=== PATIENT | female | born 1990 | race Caucasian/White ===

== ENCOUNTER 2024-07-18 11:15 | Outpatient (REF) | payer MEDICAID, SELFPAY ==
[2024-07-18 13:54] LABS: Uric Acid 5.3 mg/dL (2.4-5.7)
[2024-07-18 14:57] LABS: Rheumatoid Factor < 13.0 IU/mL (<15.0)
[2024-07-19 19:37] LABS: Lyme Abs Screen <0.90 index
[2024-07-20 11:34] LABS: Anti Nuclear Antibody Screen NEGATIVE (NEGATIVE)
--- OUTSIDE RECORDS SUMMARY | 2024-07-24 18:01 | XMS_ITS | Data Portability ---
Author Organization [facility] leonardo [address] Address [address] [place] [address] Assessment No assessment recorded. Plan of Treatment Reminders Order Date Submit Date Provider Last Modified By Organization Details Last Modified Time Details Appointments None recorded. Lab None recorded. Referral None recorded. Procedures None recorded. Surgeries None recorded. Imaging None recorded. Medication Orders Aplisol 5 tub. unit/0.1 mL intradermal injection solution 2023 024 [email or web address] Not available 12:19:13 Patient TargetsNo targets recorded. Patient InstructionsNo instructions recorded. Reason for Referral None Reported. Medical Equipment None Reported. Allergies No known drug allergies Medications Name Sig Start Date Stop Date Status Note LastModified by Organization Details LastModified Time Aplisol 5 tub. unit/0.1 mL intraderma l injection solution Inject 0.1 mL by intraderm al route. 2023 active Billable units for PPD is one. Units are not the dose. Not Available Not Available Not Available Johanna 0.35 mg tablet TAKE 1 TABLET BY MOUTH EVERY DAY IN THE MORNING active Not Available Not Available No t Available Vitals None Recorded Social History None recorded. Functional Status None recorded. Mental Status None recorded. Family History Nothing Reported. Medical History No medical history recorded. Gynecological HistoryNo gynecological history recorded. Obstetrics History GPAL:G 0 P 0 0 0 0 Past Encounters Encounter ID Performer Location Encounter Start Date Encounter Closed Date Diagnosis/Indication Diagnosis SNOMED-CT Code Diagnosis ICD10 Code [id number] [address] [address] 03/28/2019 11:54:35 03/28/2019 12:08:46 [id number] [address] [facility] [address] [place] [address] 06/28/2018 15:35:24 06/28/2018 17:15:54 [id number] [address] [facility] TAMMIE Blum [address] 06/08/2022 11:27:35 06/08/2022 14:41:06 [id number] Wanda Butler MD [address] [facility] [address] [place] [address] 11/15/2023 11:13:43 11/15/2023 12:00:33 Tuberculosis screening 438242513 Z11.1 Health Concerns Section Related Observation LastModified by Organization Detai ls LastModified Time None Recorded Concern Status LastModified by Organization Details LastModified Time None Recorded Advance Directives Directive None Recorded Payers Encounter Date Sequence Insurance Name Policy Number Policy Peralta Covered Member ID Peralta Member ID Guarantor Name 11/15/2023 OC-PAY AT TIME OF SERVICE 2022 Claurelina Manjarrez SELF Claurelina Manjarrez OBGyn Episode No OBEpisode recorded.
== END 2024-07-18 11:16 | disposition home or self-care (01) ==
LOC: HO.HHCL 11:15
PROVIDERS: Visit Provider Emergency Medicine
DX: M25.531 Pain in right wrist (principal); M25.532 Pain in left wrist; M25.561 Pain in right knee; M25.562 Pain in left knee
CPT/HCPCS: 36415; 84550; 86038; 86431; 86617; 86618

== ENCOUNTER 2024-07-24 05:53 | Outpatient (REF) | payer MEDICAID, SELFPAY ==
--- NOTE | 2024-07-24 | EMG_ITS ---
FINDINGS: Bilateral median and ulnar motor and sensory studies were performed. Bilateral radial sensory studies were performed. Bilateral median and lateral antecubital brachial sensory studies were performed. Needle examination was performed. IMPRESSION: Mild right median neuropathy across carpal tunnel. Otherwise, no significant abnormality noted. MD JENNIFER Bear/TALYA / [id number]
--- OUTSIDE RECORDS SUMMARY | 2024-07-25 18:21 | XMS_ITS | Data Portability ---
Author Organization SAMMY leonardo [address] Address [address] [place] [address] Assessment No assessment recorded. Plan of Treatment [...] Diagnosis/Indication Diagnosis SNOMED-CT Code Diagnosis ICD10 Code [id number] [address] [address] 03/28/2019 11:54:35 03/28/2019 12:08:46 [id number] [address] [facility] [address] [facility] [address] 06/28/2018 15:35:24 06/28/2018 17:15:54 [id number] [address] [facility] TAMMIE Blum [address] 06/08/2022 11:27:35 06/08/2022 14:41:06 [id number] Wanda Butler MD [address] [facility] [address] [facility] [place] [address] 11/15/2023 11:13:43 11/15/2023 12:00:33 Tuberculosis screening [id number] Z11.1 Health Concerns Section Related Observation LastModified [...]
== END 2024-07-24 05:54 | disposition home or self-care (01) ==
LOC: HO.NEURO 05:53
PROVIDERS: Visit Provider Emergency Medicine
DX: M25.531 Pain in right wrist (principal); M25.532 Pain in left wrist
CPT/HCPCS: 95886; 95913

== ENCOUNTER 2024-09-17 09:54 | Outpatient (AMB) | payer MEDICAID, SELFPAY ==
--- NOTE | 2024-09-17 10:14 | MHC.OFFVIS ---
Vital Signs 09/17/24 10:33 Height 5 ft 3 in Intake Visit Reasons: New Pt - Bilateral CTS - EMG Done Intake Note: Tram 34 yr old female presents today for a new patient visit for bilateral hand CTS. States left is worse. States symptoms started about -3 months ago and has worsen since. Patient would like to discuss surgical intervention. EMG done. IMPRESSION: Mild right median neuropathy across carpal tunnel. Otherwise, no significant abnormality noted. Study Assistant Name: Jessica [id number] Allergies VITAMIN B COMPLEX Allergy (Unknown, Uncoded 09/17/24 10:32) hives Vitamin B Complex Allergy (Unknown, Uncoded 09/17/24 10:32) hives HPI HPI New Pt - Bilateral CTS - EMG Done: Details: Tram 34 yr old female presents today for a new patient visit for bilateral hand CTS. States left is worse. States symptoms started about -3 months ago and has worsen since. Patient would like to discuss surgical intervention. EMG done. IMPRESSION: Mild right median neuropathy across carpal tunnel. Otherwise, no significant abnormality noted. [facility] Social History (Updated 09/17/24 @ 10:33 by Shakira Cobian [facility]) Current occupation: rt hand / [employer] Physical Exam Extrem Other: Neuro: Normal sensation in both hands today No thenar or intrinsic wasting. Good APB muscle firing and good finger cross. Vascular: Capillary refill brisk. ROM: Patient can make a fist and extend all their digits. Skin: No lacerations or abrasions noted. General: No ecchymosis. No erythema or evidence of infection. Assessment & Plan Assessment & Plan (1) Right carpal tunnel syndrome: Code(s): G56.01 - Carpal tunnel syndrome, right upper limb Category: Medical Plan 1. Right carpal tunnel syndrome Intermittent, daily, worse at night Patient was educated about this condition Patient was educated about the treatment options available Patient states she would like to have some more time to think about any potential surgical intervention prior to getting signed up Patient was educated on the potential risks of prolonging treatment for carpal tunnel syndrome Patient states understanding of these risks Patient will follow-up in 4-6 weeks for discussion of carpal tunnel release, sooner with any acute concerns Coding Level of Care Code New Pt Level 4 (32533) Diagnoses Right carpal tunnel syndrome G56.01
--- OUTSIDE RECORDS SUMMARY | 2024-09-17 10:25 | XMS_ITS | Encounter Summary ---
Author Organization [facility] Address [address] [place] [address] 7 [place] [address] Care Team Providers Care Core Feeder Name Role Phone Rosanna Castellanos MD Primary Care Provider [phone] Marlys Man RN Unavailable [phone] Encounter Details Date Type Department Care Team (Latest Contact Info) Description 05/27/2021 Abstract [facility] CONVERSIONS Dental, Provider, DDS Social History Tobacco Use Types Packs/Day Years Used Date Smoking Tobacco: Never Assessed Comments Unknown Sex and Gender Information Value Date Recorded Sex Assigned at Female 06/14/2022 10:22 AM EDT Legal Sex Female 10:22 AM EDT Gender Identity Female 06/14/2022 10:22 AM EDT Sexual Orientation Straight 06/14/2022 10 :22 AM EDT documented as of this encounter Plan of Treatment Upcoming Encounters Date Type Department Care Team (Late st Contact Info) Description 10/17/2024 10:30 AM EST Office Visit [facility] OPTOMETRY [address] [place] [address] Madelin Alonso, OD [address] [place] [address] documented as of this encounter Visit Diagnoses Not on filedocumented in this encounter Care Teams Core Feeder Relationship Specialty Start Date End Date Rosanna Castellanos MD [address] [place] [address] PCP - General Family Medicine 04/07/21 Marlys Man, MALIHA [address] [place] [address] Program Director Substance AbuseRat Culturist 12/15/23 documented as of this encounter
--- OUTSIDE RECORDS SUMMARY | 2024-09-17 10:25 | XMS_ITS | Clinical Summary ---
Author Organization [employer] Address [address] [facility] [address]t [place] [address] Care Team Providers Care Brazing Machine Operator Helper Name Role Phone Rosanna Castellanos MD Primary Care Provider Marlys Man RN Unavailable [phone] Allergies Active Allergy Reactions Criticality Noted Date Comments Niacin Other High 09/27/2022 syncope Medications Pain Reliever Plus 250-250-65 MG tablet TAKE 1 OR 2 TABLETS BY MOUTH NEEDED AT ONSET OF HEADACHE. DO NOT EXCEED 4 TABLETS IN 4 HOURS OR 8 TABLETS PER DAY 2 Active ibuprofen 800 MG tablet TAKE 1 TAB EVERY 8 HOURS FOR PAIN 2 Active topiramate (Topamax) 25 MG tablet TAKE 1 TABLET BY MOUTH ONCE DAILY FOR 90 DAYS 2 Active sucralfate (Carafate) 1 g tablet Take 1 g by mouth. 8 Active simethicone (Mylicon) 80 MG chewable tablet Chew 80 mg. 8 Active polyvinyl alcohol (Liquifilm Tears) 1.4 % ophthalmic solution one drop in each eye as needed for burning/drynes s 9 Active polyethylene glycol, PEG, 3350 (Glycolax) 17 GM/SCOOP powder Take 17 g by mouth. 8 Active omeprazole OTC (PriLOSEC OTC) 20 MG EC tablet Take 1 tablet by mouth at bed time. 0 Active norethindrone (Micronor) 0.35 MG tabletIndicatio ns:Irregular menses TAKE 1 TABLET BY MOUTH EVERY MORNING 84 tablet 3 3 Active acetaminophen (Tylenol) 500 MG tablet Take 2 tablets (1,000 mg) by mouth every 6 (six) hours if needed for moderate pain or fever. 40 tablet 4 Active ibuprofen 400 MG tablet Take 1 tablet (400 mg) by mouth every 6 (six) hours if needed for moderate pain or fever for up to 30 doses. 30 tablet 4 Active lidocaine (Lidoderm) 5 % patch Apply 1 patch topically Once per day. Remove & discard patch within 12 hours or as directed by MD. 30 patch 2 4 07/18/20 25 Active Active Problems Problem Noted Date Diagnosed Date Encounter for pre-employment examination 024 Assessment & Plan (10/16/2023 9:43 AM EST): Pt is cleared for employment, as she has no evidence of communicable disease and is physically capable of the demands of her employment. Constipation 09/27/2022 Hemangioma of liver 09/27/2022 Kidney stone 09/27/2022 Irregular menses 09/27/2022 Assessment & Plan (09/27/2022 1:07 PM EST): Declines prengnancy test prior to OCP start Will concern about CADASIL and history of migraine, combination OCPs are contra-indicated Started Micronor daily x 3 months Abnormal brain MRI 09/27/2022 Assessment & Plan (09/27/2022 1:15 PM EST): MRI from 2019 with suggestion of CADASIL as diagnosis Has not seen neurology, will refer to ass Headache 07/13/2021 Sensorineural hearing loss ( SNHL) of left ear with unrestricted hearing of right ear 07/13/2021 Assessment & Plan (09/27/2022 1:07 PM EST): Use hearing aid without difficulty Encounters Date Type Department Care Team Description 08/16/2024 Telephone [facility] MEDICINE [address] [place] [address] Rosanna Castellanos MD 07/31/2024 Orders Only [facility] WALK-IN CENTER [address] [place], [place] [id number] Barber Rios MD Pain in both wrists (Primary Dx); Acute pain of both knees 07/27/2024 Telephone [facility] WALK-IN CENTER [address] [place] [address] Rosanna Castellanos MD results 07/20/[address] [address] Rosanna Castellanos MD Paperwork/Forms 07/20/2024 Telephone [facility] WALK-IN [address] [address] Barber Rios MD 07/20/[address] [address] Rosanna Castellanos MD Results 07/18/2024 10:40 AM EST Office Visit [facility] WALK-IN [address] [address] Barber Rios MD Pain in both wrists (Primary Dx); Acute pain of both knees 07/11/[address] [address] Rosanna Castellanos MD Nurse Triage 06/20/2024 Travel from Last 3 Months Immunizations Name Administration Dates Next Due Hep A, Adult 10/13/2023 Hep B, adult 11/12/2015,07/21/2015,06/17/2015 Influenza injectable quadriv alent IIV4 with preservative 05/01/2018,06/17/2015 Influenza injectable quadriv alent preservative free 09/27/2022,07/13/2021,05/18/2019,2016,10/07/2016 Influenza, Split (incl. ramona fied surface antigen) 05/08/2012 MMR 03/07/2012 Pfizer Covid-19 Vaccine 12+ lyric-sucrose (Lazcano Cap) 10/27/2021 TD (adult), 2 Lf tetanus tox oid, preservative free, adsorbed 03/07/2012 Tdap 03/20/2015 Varicella 03/01/2019,06/20/2012,03/07/2012 Social History Tobacco Use Types Packs/Day Years Used Date Smoking Tobacco: Never Smokeless Tobacco: Never Tobacco Cessation:Counseling Given: Not Answered Alcohol Use Standard Drinks/Week Comments Not Currently 0 (1 standard drink = 0.6 oz pur e alcohol) ocaccionally Depression Answer Date Recorded Patient Health Questionnaire-9 Score 0 10/13/2023 Patient Health Questionnaire-9 Score 0 10/13/2023 Last PHQ-9: Questionnaire Data Not on file 0 10/13/2023 Housing Stability Answer Date Recorded What is your housing situation today? I have joie washington 10/06/[address] you li ve. Do you have problems with any of the following? None of the above 10/06/2023 Food Insecurity Answer Date Recorded Within the past 12 months, y ou worried that your food would run out before you got money to buy more: Never True 10/06/2023 Within the past 12 months,th e food you bought just didn't last and you didn't have enough money to get more: Never True Transportation Answer Date Recorded In the past 12 months, has l ack of transportation kept you from medical appts, meetings, work or from getting things needed for daily living? No 10/06/2023 Utilities Answer Date Recorded In the past 12 months, has t he electric, gas, oil or water company threatened to shut off services in your home? No 10/06/2023 Depression Answer Date Recorded Patient Health Questionnaire-2 Score 0 10/13/2023 Comments No Sex and Gender Information Value Date Recorded Sex Assigned at Female 06/14/2022 10:22 AM EDT Legal Sex Female 10:22 AM EDT Gender Identity Female 06/14/2022 10:22 AM EDT Sexual Orientation Straight 06/14/2022 10 :22 AM EDT Last Filed Vital Signs Vital Sign Reading Time Taken Comments Blood Pressure 128/84 07/18/2024 10:41 AM EST Pulse 76 07/18/2024 10:41 AM EST Temperature 36.7 ??C (98 ??F) 07/18/2024 10:41 AM EST Respiratory Rate 18 07/18/2024 10:41 AM EST Oxygen Saturation 98% 07/18/2024 10:41 AM EST Inhaled Oxygen Concentration - - Weight 57.2 kg (126 lb 3.2 oz) 07/18/2024 10:41 AM EST Height 144.8 cm (4' 9 ) 10/13/2023 10:47 AM EST Body Mass Index 27.31 10/13/2023 10:47 AM EST Plan of Treatment Upcoming Encounters Date Type Department Care Team (Late st Contact Info) Description 10/17/2024 10:30 AM EST Office Visit [facility] OPTOMETRY [address] [place] [address] Madelin Alonso, OD [address] [place] [address] Health Maintenance Due Date Last Done Comments HIV Screening 1992 Family Planning (PISQ) 2007 Hepatitis C Screening 2010 Pap Smear 2013 Cervical Cancer Screening 2022 HPV/Cotest 2022 Hepatitis A Vaccines (2 of 2 - Risk 2-dose series) 04/12/2024 10/13/2023 COVID-19 Vaccine ( season) 2024 10/27/2021, 04/22/2021, 04/01/2021 Influenza Vaccine (#1) 2024 , 07/13/2021, 05/18/2019, Additional history exists Alcohol/Substance Use Screening 10/12/2024 10/13/2023 Depression Screening 10/12/2024 10/13/2023, 10/13/19 24 SDOH Screening 10/12/2024 10/13/2023 DTaP/Tdap/Td Vaccines (2 - Td or Tdap) 03/20/2025 03/20/2015, 03/07/2012 Tobacco Screening 07/18/2025 07/18/2024 Zoster Vaccines (1 of 2) 2042 RSV Patients and Patients Aged 60 years or older (1 - 1-dose 75+ series) 2067 Hepatitis B Vaccines Completed 11/12/2015, 07/21/2015, 06/17/2015 HIB Vaccines Aged Out No longer eligi ble based on patient's age to complete this topic HPV Vaccines Aged Out No longer eligi ble based on patient's age to complete this topic IPV Vaccines Aged Out No longer eligi ble based on patient's age to complete this topic Meningococcal Vaccine Aged Out No west maycol eligible based on patient's age to complete this topic Pneumococcal Vaccine: Pediatrics (0 to 5 Years) and At-Risk Patients (6 to 49) Years) Aged Out No longer eligible based on patient's age to complete this topic RSV under 20 months Aged Out No longe r eligible based on patient's age to complete this topic Rotavirus Vaccines Aged Out No longer eligible based on patient's age to complete this topic Procedures Procedure Name Priority Date/Time Associated Diagnosis Comments LYME DISEASE AB W/REFL TO BLOT (IGG, IGM) Routine 07/18/2024 11:21 AM EST Pain in both wrists Acute pain of both knees URIC ACID Routine 07/18/2024 11:21 AM EST Pain in both wrists Acute pain of both knees RHEUMATOID FACTOR Routine 07/18/2024 11: 21 AM EST Pain in both wrists Acute pain of both knees EVER SCREEN, IFA, W/REFL TITER AND PATTERN Routine 07/18/2024 11:21 AM EST Pain in both wrists Acute pain of both knees from Last 3 Months Results * Lyme Disease Ab with Reflex to Blot (IgG, IgM) (07/18/2024 11:21 AM EST) Lyme Antibody Screen <0.90 index [facility] Comment:Index Interpretation ----- < 0.90 Negative 0.90-1.09 Equivocal > 1.09 PositiveAs recommended by the Food and Drug Administration(FDA), all samples with positive or equivocalresults in a Borrelia burgdorferi antibody screenwill be tested using a blot method. Positive orequivocal screening test results should not beinterpreted as truly positive until verified as suchusing a supplemental assay (e.g., B. burgdorferi blot).The screening test and/or blot for B. burgdorferiantibodies may be falsely negative in early stagesof Lyme disease, including the period when erythemamigrans is apparent.THIS TEST WAS PERFORMED AT:[facility] [place] [phone] KENYON MD Lyme Blot TNP [facility] 07/18/2024 11:2 1 AM EST 07/18/2024 12:56 PM EST us Barber Rios MD LAB BLOOD ORDERABLES Final Resul t Performing Organization Address City/[facility] [address]/[facility] Co de Phone Number [facility] [address] [place] [address] [phone] * Rheumatoid Factor (07/18/2024 11:21 AM EST) Rheumatoid Factor <13.0 <15.0 IU/mL [facility] Blood Venous blood specimen / Unknown 07/18/2024 11:21 AM EST 07/18/2024 12:56 PM EST us Barber Rios MD LAB BLOOD ORDERABLES Final Resul t Performing Organization Address [facility] [address]/[facility] de Phone Number [facility] [address] [place] [address] [phone] * EVER Screen,IFA, with Reflex to Titer and Pattern (07/18/2024 11:21 AM EST) Anti Nuclear Antibody Screen NEGATIVE NEGATIVE [facility] Comment:EVER IFA is a first l ine screen for detecting thepresence of up to approximately 150 autoantibodies invarious autoimmune diseases. A negative EVER IFA resultsuggests an EVER-associated autoimmune disease is notpresent at this time, but is not definitive. If thereis high clinical suspicion for Sjogren's syndrome,testing for anti-SS-A/Ro antibody should be considered.Anti-Tori-1 antibody should be considered for clinicallysuspected inflammatory myopathies.AC-0: NegativeInternational Consensus on EVER Patterns(https://doi.org/10.1515/hoeq-4187-8092)For additional information, please refer tohttp://education.DartPoints/faq/TWG541(This link is being provided for informational/educational purposes only.)THIS TEST WAS PERFORMED AT:[facility] [place] [phone] KENYON MD EVER Titer TNP [facility] EVER Pattern TNP [facility] EVER TITER 2 (REF LAB) [facility] EV[facility] Pattern 2 TNP [facility] EVER TITER 3 [facility] PAT[facility] 3 [facility] Blood Venous blood specimen / Unknown 07/18/2024 11:21 AM EST 07/18/2024 12:56 PM EST Barber Rios MD LAB BLOOD ORDERABLES Final Resul t Performing Organization Address City/[facility] [address]/ZIP Co de Phone Number [facility] [address] [place] [address] [phone] * Uric acid (07/18/2024 11:21 AM EST) Uric Acid 5.3 2.4 - 5.7 mg/dL [facility] Blood Venous blood specimen / Unknown 07/18/2024 11:21 AM EST 07/18/2024 12:56 PM EST Barber Rios MD LAB BLOOD ORDERABLES Final Resul t Performing Organization Address City/[facility] [address]/[facility] Co de Phone Number [facility] [address] [place] [address] [phone] from Last 3 Months Insurance [facility] C3 HSN FULL Care Teams Brazing Machine Operator Helper Relationship Specialty Start Date End Date Rosanna Castellanos MD [address] [place] [address] PCP - General Family Medicine 04/07/21 Marlys Man RN [address] [place] [phone] Personal Lines AgentMachine Hoop Maker 12/15/23
--- OUTSIDE RECORDS SUMMARY | 2024-09-17 10:25 | XMS_ITS | Data Portability ---
Author Organization [facility] [address] Address [address] [place] [address] Assessment No assessment recorded. Plan of Treatment [...] Diagnosis/Indication Diagnosis SNOMED-CT Code Diagnosis ICD10 Code Diagnosis Note [id number] [address] [place] [address] 03/28/2019 11:54:35 03/28/2019 12:08:46 [id number] [address] [place] [address] 06/28/2018 15:35:24 06/28/2018 17:15:54 [id number] [address] [facility] TAMMIE Blum [address] 06/08/2022 11:27:35 06/08/2022 14:41:06 [id number] Wanda Butler MD [facility] [address] [place] [address] 11/15/2023 11:13:43 11/15/2023 12:00:33 Tuberculosis screening [id number] Z11.1 Health Concerns Section Related Observation LastModified [...]
--- OUTSIDE RECORDS SUMMARY | 2024-09-17 10:25 | XMS_ITS | Clinical Summary ---
Author Organization [facility] Address [address] [place] [address] Care Team Providers Care Range Aide Name Role Phone Unavailable Primary Care Provider Unavailabl e Source Comments PLEASE NOTE, if this patient is a minor, it may be UNLAWFUL to discuss sensitive information that is contained in these records (such as FAMILY PLANNING, MENTAL HEALTH or SUBSTANCE ABUSE) with the minor patient's parent or other person without the patient's specific authorization.[facility] Medications No known medications Active Problems No known active problems Encounters Date Type Department Care Team Description 06/27/2024 1:00 PM EST Office Visit [address] [phone] Ravinder Moore RDH Chronic gingivitis, plaque induced (Primary Dx) 06/27/2024 Travel 06/20/2024 1:00 PM EST Office Visit [address] [phone] 2, Bu Rib Cutter Caries (Primary Dx) 06/20/2024 Travel from Last 3 Months Social History Tobacco Use Types Packs/Day Years Used Date Smoking Tobacco: Never Smokeless Tobacco: Never Tobacco Cessation:Counseling Given: Not Answered Social Connections Answer Date Recorded Connectedness 0 04/30/2024 Financial Resource Strain Answer Date R ecorded Financial Resource Strain 0 2023 Stress Answer Date Recorded Stress 0 01/10/2024 Physical Activity Answer Date Recorded Physical Activity 0 01/10/2024 Food Insecurity Answer Date Recorded Food 0 05/10/2024 Transportation Needs Answer Date Record ed Transportation 0 01/10/2024 Housing Stability Answer Date Recorded Housing 0 01/10/2024 Safety and Environment Answer Date Pedro rded Safety 0 01/10/2024 Utilities Answer Date Recorded Utilities 0 01/10/2024 Employment Answer Date Recorded Stress 0 04/30/2024 Comments Unknown Sex and Gender Information Value Date Recorded Sex Assigned at Not on file Legal Sex Female 11:50 AM PDT Gender Identity Not on file Sexual Orientation Not on file Last Filed Vital Signs Vital Sign [place] Time Taken Comments Blood Pressure 129/86 06/27/2024 1:06 PM EST Pulse 70 06/27/2024 1:06 PM EST Temperature - - Respiratory Rate - - Oxygen Saturation - - Inhaled Oxygen Concentration - - Weight - - Height - - Body Mass Index - - Plan of Treatment Upcoming Encounters Date Type Department Care Team (Late st Contact Info) Description 12/26/2024 1:00 PM EDT Office Visit [facility] [address] [place] [phone] Ravinder Moore, [facility] [address] [place] [address] Health Maintenance Due Date Last Done Comments HPV Screening 1992 Hepatitis C Screening 1992 Pap + HPV 1992 HIV Screening 2007 Relationship Safety Screening/Counseling 2007 Cervical Cancer Screening 2013 Pap Smear 2013 Cps-VFTOA-96 ( - season) 2024 022 Imm-Influenza (#1) 2024 09/27/2022, 1 09/12/2020, 05/18/2019, Additional history exists Alcohol and Drug Screen 08/15/2024 Depression Annual Screen 08/15/2024 Imm-DTaP/Tdap/Td (2 - Td or Tdap) 03/20/2025 015, 03/07/2012 Dental BW 06/08/2025 06/06/2024 Dental Examination 06/08/2025 06/06/2024 Dental Perio Charting 06/08/2025 06/06/2024 Tobacco Screening 06/20/2025 06/20/2024 Hypertension Screening (#1) 06/27/2025 Dental Prophy 06/29/2025 06/27/2024 Dental FMX/Pano 06/08/2029 06/06/2024 Imm-Hepatitis B Completed 11/12/2015, 12/0 02/2015, 06/17/2015 Cervical Ablation/Cold-Knife Conization Discontinued Cervical Cryotherapy Discontinued Colposcopy Discontinued Endometrial Biopsy Discontinued Excision/Leep Discontinued HPV Genotyping Discontinued Vaginal Pap Discontinued Vulvoscopy Discontinued Procedures Procedure Name Priority Date/Time Associated Diagnosis Comments Full ORAL HYGIENE INSTRUCTIONS Routine 06/27/2024 1:00 PM EST Chronic gingivitis, plaque induced Full NUTRITIONAL COUNSELING CONTROL OF DENTAL DISEASE Routine 06/27/2024 1:00 PM EST Chronic gingivitis, plaque induced Full PROPHYLAXIS - ADULT Routine 024 1:00 PM EST Chronic gingivitis, plaque induced CASE PRESENTATION SUBS DTL & EXTENSIVE TX PLN Routine 06/20/2024 1:00 PM EST Caries 14 DO RESIN-BASED COMPOSITE - TWO SURFACES POSTERIOR Routine 06/20/2024 1:00 PM EST Caries Full INTRAORAL - COMP SERIES OF RADIOGRAPHIC IMAGES Routine 06/06/2024 3:00 PM EDT Caries Encounter for dental examination Full COMP ORAL EVALUATION - NEW/ESTABLISHED PATIENT Routine 06/06/2024 3:00 PM EDT Caries Encounter for dental examination from Last 3 Months or Most Recently Relevant to Health Maintenance Insurance [place] DENTAL
--- OUTSIDE RECORDS SUMMARY | 2024-09-17 10:25 | XMS_ITS | Encounter Summary ---
Author Organization [facility] Address [address] [place] [address] 7 [place] [address] Care Team Providers Care Assistant To The President Name Role Phone Rosanna Castellanos MD Primary Care Provider [phone] Marlys Man RN Unavailable [phone] Encounter Details Date Type Department Care Team (Latest Contact Info) Description 07/20/2019 Abstract [facility] Dental, Provider, DDS Social History [...] Description 10/17/2024 10:30 AM EST Office Visit [facility] [address] [place] [address] Madelin Alonso, OD [address] [place] [address] documented as of this encounter Visit Diagnoses Not on filedocumented in this encounter Care Teams Assistant To The President Relationship Specialty Start Date End Date Rosanna Castellanos MD [address] [place] [address] PCP - General Family Medicine 04/07/21 Marlys Man, MALIHA [address] [place] [address] Training AdministratorCirculation Clerk 12/15/23 documented as of this encounter
--- OUTSIDE RECORDS SUMMARY | 2024-09-17 10:25 | XMS_ITS | Encounter Summary ---
Author Organization [facility] Address [address] [place] [address] Care Team Providers Care Station Mechanic Apprentice Name Role Phone Rosanna Castellanos MD Primary Care Provider [phone] Marlys Man RN Unavailable [phone] Encounter Details Date Type Department Care Team ([facility] st Contact Info) Description 08/16/2024 Telephone [facility] [address] [place], [place] [phone] Rosanna Castellanos MD [address] [place], [place] [phone] Social History Tobacco Use Types Packs/Day Years Used Date Smoking Tobacco: Never Smokeless Tobacco: Never Alcohol Use Standard Drinks/Week Comments Not Currently [...] Description 10/17/2024 10:30 AM EST Office Visit [facility] [address] [place] [address] Gavin, Madelin, OD [address] [place] [address] documented as of this encounter Visit Diagnoses Not on filedocumented in this encounter Additional Health Concerns Assessment Noted Time PHQ-9 Depression Total Score: 0 10/13/19 24 10:48 AM EST documented as of this encounter Care Teams Station Mechanic Apprentice Relationship Specialty Start Date End Date Rosanna Castellanos MD [address] [place] [address] PCP - General Family Medicine 04/07/21 Marlys Man RN [address] [place] [address] Tube CovererOrdnance Engineer 12/15/23 documented as of this encounter
--- OUTSIDE RECORDS SUMMARY | 2024-09-17 10:26 | XMS_ITS | Encounter Summary ---
Author Organization [employer] [facility] Address [address] [place] [address] [address] [place] [address] Care Team Providers Care License And Permit Specialist Name Role Phone Rosanna Castellanos MD Primary Care Provider [phone] Marlys Man RN Unavailable [phone] Reason for Referral * Consultation (Routine) - Canceled Specialty Diagnoses / Procedures Referred By Contmaty t Referred To Contact Audiology Diagnoses Sensorineural hearing loss (SNHL) of left ear with unrestricted hearing of right ear Rosanna Castellanos MD [address] [place] [address] Phone: tel: fax: Referral ID Status Reason Start Date Expiration Date Visits Requested Visits Authorized [id number] Canceled Specialty Services Required 12/30/2023 12/29/2024 1 1 Encounter Details Date Type Department Care Team (Late st Contact Info) Description 12/30/2023 Orders Only [facility] [address] [place], [place] [phone] Rosanna Castellanos MD [address] [place], [place] [phone] Sensorineural hearing loss (SNHL) of left ear with unrestricted hearing of right ear (Primary Dx) Social History Tobacco Use Types Packs/Day Years [...] Description 10/17/2024 10:30 AM EST Office Visit [facility] [address] [place] [address] Gavin, Madelin, OD [address] [facility] [place] [address] Scheduled Referrals Name Type Priority Associated Diagnoses Orde r Schedule Referral to Audiology Outpatient Referral Routine Sensorineural hearing loss (SNHL) of left ear with unrestricted hearing of right ear Expected: 12/30/2023 (Approximate), Expires: 12/29/2024 documented as of this encounter Visit Diagnoses Diagnosis Sensorineural hearing loss (SNHL) of left ear with unrestricted hearing of right ear- Primary documented in this encounter Additional Health Concerns Assessment Noted Time PHQ-9 Depression Total Score: 0 10/13/19 24 10:48 AM EST documented as of this encounter Care Teams License And Permit Specialist Relationship Specialty Start Date End Date Rosanna Castellanos MD [address] [place] [address] PCP - General Family Medicine 04/07/21 Marlys Man RN [address] [place] [phone] Environmental InternAudiovisual Aids Technician 12/15/23 documented as of this encounter
== END 2024-09-17 11:04 | disposition home or self-care (01) ==
DX: G56.03 Carpal tunnel syndrome, bilateral upper limbs (principal)
CPT/HCPCS: 99204

== ENCOUNTER → 2024-09-17 09:54 | Outpatient (BNVA) | payer MEDICAID, SELFPAY | DX: G56.01 Carpal tunnel syndrome, right upper limb (principal) | CPT/HCPCS: 99212 ==

== ENCOUNTER 2024-11-07 09:05 | Outpatient (AMB) | payer MEDICAID, SELFPAY ==
--- NOTE | 2024-11-07 09:07 | A.OFFVIS_ITS ---
Vital Signs 11/07/24 09:09 Height 5 ft 3 in Weight 125 lb BMI 22.1 Intake Visit Reasons: OV- Bilateral UE CTS, discuss CTR Intake Note: Tram is a 34 year old right hand dominant female who presents today for a follow up of her bilateral carpal tunnel syndrome. Patient reports that her left hand is worse than the right. 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 She is interested in conservative treatment options such as physical therapy. Allergies VITAMIN B COMPLEX Allergy (Unknown, Uncoded 09/17/24 10:32) hives Vitamin B Complex Allergy (Unknown, Uncoded 09/17/24 10:32) hives HPI HPI OV- Bilateral UE CTS, discuss CTR: Details: Tram is a 34 year old right hand dominant female who presents today for a follow up of her bilateral carpal tunnel syndrome. Patient reports that her left hand is worse than the right. 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 She is interested in conservative treatment options such as physical therapy. EMG 08/03/24 IMPRESSION: Mild right median neuropathy across carpal tunnel. Otherwise, no significant abnormality noted. [facility], [facility] Social History (Updated 09/17/24 @ 10:33 by PRICE Hanna) Current occupation: rt hand / [employer] Review of Systems Const All systems reviewed & are unremarkable except as noted in HPI and below Physical Exam Vital Signs: BMI result Body Mass Index 22.1 Extrem Other: Neuro: Normal sensation in both hands today No thenar or intrinsic wasting. Good APB muscle firing and good finger cross. Vascular: Capillary refill brisk. ROM: Patient can make a fist and extend all their digits. Skin: No lacerations or abrasions noted. General: No ecchymosis. No erythema or evidence of infection. Assessment & Plan Assessment & Plan (1) Right carpal tunnel syndrome: Code(s): G56.01 - Carpal tunnel syndrome, right upper limb Category: Medical Plan 1. Right carpal tunnel syndrome Intermittent, daily, worse at night Patient was educated about this condition Patient was educated about the treatment options available Patient states she would like to delay any potential surgical intervention due to needing to have full function of both hands as she is taking care of her mother Patient was referred to occupational therapy for range of motion and strengthening of the right wrist in the setting of carpal tunnel syndrome Patient was educated on the potential risks of prolonging treatment for carpal tunnel syndrome Patient states understanding of these risks Patient will follow-up when she is ready to discuss surgery, sooner with any acute concerns Orders: Orders OT Evaluation and Treatment Today G56.01 - Carpal tunnel syndrome, right upper limb Coding Level of Care Code Est Pt Level 3 (09240) Diagnoses Right carpal tunnel syndrome G56.01
[2024-11-07 09:09] VITALS: BMI 22.1
== END 2024-11-07 09:29 | disposition home or self-care (01) ==
LOC: HO.HOS 09:06
DX: G56.01 Carpal tunnel syndrome, right upper limb (principal)
CPT/HCPCS: 99213

== ENCOUNTER → 2024-11-07 09:05 | Outpatient (BNVA) | payer MEDICAID, SELFPAY | DX: G56.03 Carpal tunnel syndrome, bilateral upper limbs (principal) | CPT/HCPCS: 99212 ==

== ENCOUNTER 2024-12-19 12:52 | Outpatient (RCR) | payer OTHER, SELFPAY ==
--- NOTE | 2024-11-28 15:30 | MHC.OT.EP ---
[address] [phone] Occupational Therapy Plan of Care Patient Name: Tram Manjarrez Date of Evaluation: 11/28/24 Diagnosis: Bilateral carpal tunnel syndrome Pain Location: Pain in right wrist: 7/10 Pain in left wrist: 8-9/10 Pain Score: 9 Pain Scale Used: Numeric (0 - 10) Aggravating Factors: Forceful grasp, carrying/lifting Alleviating Factors: Wearing splints, heat/hot water, ibuprofen, lidocaine patches Assessment: Tram is a 34-year-old right-hand dominant female referred to occupational therapy for management of bilateral carpal tunnel syndrome. She reports a 6-month history of progressively worsening pain and numbness in both hands, primarily on the dorsal surfaces, along with decreased networking technician strength and difficulty completing fine motor tasks. She is currently wearing bilateral wrist cock-up splints at night and as needed during her work shift. Her primary goal is to reduce symptoms and improve hand function in order to continue working and caregiving, without surgical intervention. QuickDASH Score: 65.9% indicating moderate to severe disability impacting daily activities and upper extremity function. Pt. would benefit from skilled OT services for pain management, education on activity modification, and strengthening for improved function. Frequency and Duration: The patient will be seen 2x/wk for 6 weeks Short Term Goals: Decrease bilateral wrist pain <3/10 IND with HEP and splint wear IND with thermal modalities Lead Php Developer Goals: Pt will tolerate full work shift with minimal or no exacerbation of CTS symptoms Improve bilateral networking technician strength by 10# each Client will report at least a 30% improvement in QuickDASH score Treatment Plan: Therapeutic Exercise Therapeutic Activity Home Exercise Program Patient Education Ultrasound Paraffin MHP Soft Tissue Mobilization Electronically Signed By: Alis Bennett, OTR/L Please Sign and return to therapist. Thank you once again for your referral.
--- NOTE | 2024-12-19 13:32 | MHC.OT.DC ---
[address] [phone] F: [phone] Occupational Therapy Discharge Note Patient Name: Tram Manjarrez Provider: Sunil Johnson Diagnosis: Bilateral carpal tunnel syndrome Date of Evaluation: 11/28/24 Date of Discharge: 12/19/24 Discharge Status: Achieved Goals Improved Function Independent with HEP Discharge Summary: Tram has made excellent progress in OT and met all goals set on admission. She has been highly compliant with splint wear while at work and reports being symptom-free during work activities as well as pain-free at rest. Objective measures show significant improvement in functional capacity, with bilateral city planning teacher strength increasing to 75#. Additionally, her QuickDASH score has improved, decreasing from 65% impairment to 6.8%, indicating substantial functional gains. At this time, the patient is IND with her HEP and has expressed understanding and agreement with discharge. No further skilled OT services are indicated. Thank you for this referral! Electronically Signed By: Alis Bennett MS OTR/L Reviewed/agree with student documentation: Therapist: Please Sign and return to therapist, thank you for your referral.
== END 2024-12-19 13:33 | disposition home or self-care (01) ==
LOC: HO.OTS 12:52
DX: G56.01 Carpal tunnel syndrome, right upper limb (principal)
CPT/HCPCS: 97035; 97110; 97165